=== PATIENT | female | born 1985 | race Caucasian/White ===

== ENCOUNTER 2017-11-11 19:12 | Inpatient (IN) | payer MEDICAID ==
[~2017-11-11] VITALS: Ht 172.7 cm; Wt 99.0 kg
[~2017-11-11 19:12] MED LIST: IBUP-1223 PO; OXYC-302 PO
[2017-11-11] MEDS ORDERED: NEWBORN KIT ONE (19:15)
[2017-11-11] MEDS ORDERED: OXYTOCIN 30U/ 0.9% NaCL 500ML 500 ML ONE ×2 (19:15→19:58)
[2017-11-11] MEDS ORDERED: LACTATED RINGERS 1,000 ML IV SCH (19:33)
[2017-11-11] MEDS ORDERED: OXYTOCIN 30U/ 0.9% NaCL 500ML 500 ML IV ONE (19:33)
[2017-11-11] MEDS ORDERED: D5%-LACTATED RINGERS 1,000 ML IV SCH (19:33)
[2017-11-11] MEDS ORDERED: IBUPROFEN 600 MG TABLET ONE (19:37)
[2017-11-11] MEDS: OXYTOCIN 30U/ 0.9% NaCL 500ML 500 ML IV SCH ×5 (19:41→22:33)
[2017-11-11] MEDS: IBUPROFEN 600 MG TABLET PO PRN (19:51)
[2017-11-11 19:53] VITALS: BP 132/73
[2017-11-11] MEDS ORDERED: BISACODYL 10 MG SUPP PR PRN (20:00)
[2017-11-11] MEDS ORDERED: ONDANSETRON 2MG/ML, 2ML IV PRN (20:00)
[2017-11-11] MEDS ORDERED: HYDROcodone/APAP 5/325 TABLET PO PRN (20:00)
[2017-11-11] MEDS ORDERED: ONDANSETRON 2MG/ML, 2ML IVPush PRN (20:00)
[2017-11-11] MEDS ORDERED: SODIUM CITRATE/CITRIC ACID 30 ML UDC PO PRN (20:00)
[2017-11-11] MEDS ORDERED: CALCIUM CARBONATE 500 MG TAB.CHEW PO PRN ×2 (20:00)
[2017-11-11] MEDS ORDERED: MISOPROSTOL 200 MCG TABLET PR PRN (20:00)
[2017-11-11] MEDS ORDERED: ACETAMINOPHEN 325 MG TABLET PO PRN ×2 (20:00)
[2017-11-11 20:02] LABS: BASOPHILS # (AUTO) 0.02 x10^3/uL (0-0.1); BASOPHILS % (AUTO) 0 % (0-1); EOSINOPHILS # (AUTO) 0.05 x10^3/uL (0-0.4); EOSINOPHILS % (AUTO) 0 % (1-7); LYMPHOCYTES # (AUTO) 0.96 x10^3/uL (1-3.4); LYMPHOCYTES % (AUTO) 8 % (22-44); MD NO; MEAN CORPUSCULAR HGB CONC 34.4 g/dL (32.4-35.8); MEAN CORPUSCULAR VOLUME 92.8 fL (80-100); MEAN PLATELET VOLUME 8.5 fL (7.4-10.4); MONOCYTES # (AUTO) 0.49 x10^3/uL (0.2-0.8); MONOCYTES % (AUTO) 4 % (2-9); NEUTROPHILS % (AUTO) 88 % (42-75); PLATELET COUNT 215 x10^3/uL (130-400); RED BLOOD COUNT 4.06 x10^6/uL (3.82-5.3)
[2017-11-11 21:25] VITALS: BP 105/66
[2017-11-12 00:15] VITALS: BP 112/69
[2017-11-12] MEDS: HYDROcodone/APAP 5/325 TABLET PO PRN ×3 (00:18→19:28)
[2017-11-12] MEDS: DOCUSATE 100 MG CAPSULE PO PRN ×2 (00:18→07:44)
[2017-11-12] MEDS: IBUPROFEN 600 MG TABLET PO PRN ×3 (04:07→19:28)
[2017-11-12 04:17] VITALS: BP 105/65
[2017-11-12] MEDS: LEVOTHYROXINE 150 MCG TABLET PO SCH ×2 (05:52→05:53)
[2017-11-12 07:28] VITALS: BP 89/46
[2017-11-12] MEDS ORDERED: PRENATAL VIT/IRON/FA 1 EACH TABLET PO SCH (09:00)
[2017-11-12] MEDS ORDERED: HYDR-3240 PO (09:06)
[2017-11-12] MEDS ORDERED: IBUP-1222 PO (09:06)
[2017-11-12] MEDS ORDERED: DOCU-131 PO (09:06)
[2017-11-12 12:18] VITALS: BP 110/77
[2017-11-12 15:38] VITALS: BP 102/68
[2017-11-12] MEDS: OXYTOCIN 30U/ 0.9% NaCL 500ML 500 ML IV SCH (15:41)
== END 2017-11-12 20:20 | disposition home or self-care (01) | DRG 775 ==
LOC: LDIP 19:12 → 2NW 21:15
PROVIDERS: ADMIT Obstetrics & Gynecology; ATTEND Obstetrics & Gynecology
PROC: 10E0XZZ Delivery of Products of Conception, External Approach (ICD-10-PCS; principal; 2017-11-11)
DX: O62.3 Precipitate labor (principal); O69.81X0 Labor and delivery complicated by cord around neck, without compression, not applicable or unspecified; Z37.0 Single live birth; O99.284 Endocrine, nutritional and metabolic diseases complicating childbirth; E03.9 Hypothyroidism, unspecified; G43.909 Migraine, unspecified, not intractable, without status migrainosus; Z3A.38 38 weeks gestation of pregnancy; Z80.41 Family history of malignant neoplasm of ovary; Z80.8 Family history of malignant neoplasm of other organs or systems; Z82.3 Family history of stroke; Z82.49 Family history of ischemic heart disease and other diseases of the circulatory system; Z83.3 Family history of diabetes mellitus; Z87.891 Personal history of nicotine dependence; Z90.49 Acquired absence of other specified parts of digestive tract
CPT/HCPCS: 36415; 85025; 86850; 86900; J2590; J7120

== ENCOUNTER → 2018-07-14 | Outpatient (CLI) | payer MEDICAID ==
[~2018-07-14] MED LIST changes: +DOCU-131 PO; +HYDR-3240 PO; +IBUP-1222 PO
== END | disposition home or self-care (01) ==
LOC: CFH 12:33
PROVIDERS: ATTEND Nurse Practitioner
DX: N64.4 Mastodynia (principal); N61.1 Abscess of the breast and nipple; N63.20 Unspecified lump in the left breast, unspecified quadrant

== ENCOUNTER 2020-05-22 09:05 | Inpatient (IN) | payer MEDICAID ==
[~2020-05-22] VITALS: Ht 172.7 cm; Wt 96.8 kg
[~2020-05-22 09:05] MED LIST changes: +HYDR-1067 PO; -HYDR-3240 PO; -OXYC-302 PO; +OXYC1TAB14 PO
[2020-05-22] MEDS ORDERED: MISOPROSTOL 200 MCG TABLET ONE (10:28)
[2020-05-22] MEDS ORDERED: NEWBORN KIT ONE (10:28)
[2020-05-22] MEDS ORDERED: OXYTOCIN 30U/ 0.9% NaCL 500ML 500 ML ONE (10:28)
[2020-05-22] MEDS ORDERED: LIDOCAINE 1%, 20ML ONE (10:28)
[2020-05-22] MEDS ORDERED: PLEASE ENTER HEIGHT AND WEIGHT MC SCH (10:30)
[2020-05-22] MEDS ORDERED: OXYTOCIN 30U/ 0.9% NaCL 500ML 500 ML IV ONE (10:30)
[2020-05-22] MEDS ORDERED: ONDANSETRON 2MG/ML, 2ML IVPush PRN (10:30)
[2020-05-22] MEDS ORDERED: TERBUTALINE 1 MG/ML, 1ML IVPush PRN (10:30)
[2020-05-22] MEDS ORDERED: FENTANYL PF 100 MCG/2ML IVPush PRN (10:30)
[2020-05-22] MEDS ORDERED: PENICILLIN GK 5,000,000 UNITS in DEXTROSE 5% 100 ML IVPB ONE (10:30)
[2020-05-22] MEDS ORDERED: FENTANYL PF 100 MCG/2ML IV PRN (10:30)
[2020-05-22] MEDS ORDERED: TERBUTALINE 1 MG/ML, 1ML SQ PRN (10:30)
[2020-05-22] MEDS ORDERED: OXYTOCIN 30U/ 0.9% NaCL 500ML 500 ML IV PRN (10:30)
[2020-05-22 10:50] LABS: AMPHETAMINE SCREEN, URINE Negative (Negative); BARBITURATE SCREEN, URINE Negative (Negative); BENZODIAZEPINE SCREEN, URINE Negative (Negative); CANNABINOID SCREEN, URINE Positive (Negative); COCAINE SCREEN, URINE Negative (Negative); METHADONE SCREEN, URINE Negative (Negative); OPIATE SCREEN, URINE Negative (Negative)
[2020-05-22] MEDS: LACTATED RINGERS 1,000 ML IV SCH ×2 (10:53→18:30)
[2020-05-22 10:55] VITALS: BP 117/63
[2020-05-22 11:11] LABS: BASOPHILS % (AUTO) 1 % (0-1); EOSINOPHILS % (AUTO) 1 % (1-7); LYMPHOCYTES % (AUTO) 16 % (22-44); MEAN CORPUSCULAR HEMOGLOBIN 31.8 pg (27.0-34.8); MEAN CORPUSCULAR HGB CONC 34.4 g/dL (32.4-35.8); MEAN PLATELET VOLUME 8.8 fL (7.4-10.4); MONOCYTES % (AUTO) 7 % (2-9); NEUTROPHILS % (AUTO) 76 % (42-75); PLATELET COUNT 201 x10^3/uL (130-400); RED BLOOD COUNT 4.17 x10^6/uL (3.82-5.3); RED CELL DISTRIBUTION WIDTH 13.4 % (9.6-15.2)
[2020-05-22 11:12] LABS: MD NO
[2020-05-22] MEDS ORDERED: OXYTOCIN 30U/ 0.9% NaCL 500ML 500 ML IV SCH (15:00)
[2020-05-22] MEDS ORDERED: ACETAMINOPHEN 325 MG TABLET PO PRN (15:00)
[2020-05-22] MEDS ORDERED: MISOPROSTOL 200 MCG TABLET PR PRN (15:00)
[2020-05-22] MEDS ORDERED: DOCUSATE 100 MG CAPSULE PO PRN (15:00)
[2020-05-22] MEDS ORDERED: SIMETHICONE 80 MG CHEW TAB PO PRN (15:00)
[2020-05-22] MEDS ORDERED: OXYcodone/APAP 5/325MG TABLET PO PRN (15:00)
[2020-05-22] MEDS: PENICILLIN GK 2,500,000 UNITS in DEXTROSE 5% 100 ML IVPB SCH ×3 (15:00→23:00)
[2020-05-22] MEDS ORDERED: OXYcodone IR 5MG TABLET PO PRN (15:00)
[2020-05-22] MEDS ORDERED: ONDANSETRON 2MG/ML, 2ML IV PRN (15:00)
[2020-05-22] MEDS ORDERED: METOCLOPRAMIDE 5 MG/ML, 2ML IV ONE (17:00)
[2020-05-22] MEDS ORDERED: AZITHROMYCIN 500 MG in SODIUM CHLORIDE 0.9% 250 ML IV ONE (17:00)
[2020-05-22] MEDS ORDERED: SODIUM CITRATE/CITRIC ACID 30 ML UDC PO ONE (17:00)
[2020-05-22] MEDS ORDERED: LACTATED RINGERS 1,000 ML IVBOLUS ONE (17:00)
[2020-05-22 17:30] VITALS: BP 127/76
[2020-05-22] MEDS: IBUPROFEN 600 MG TABLET PO PRN (17:59)
[2020-05-22 20:00] VITALS: BP 116/68
[2020-05-23] VITALS: BP 123/83
[2020-05-23 04:00] VITALS: BP 122/81
[2020-05-23 05:37] LABS: BASOPHILS % (AUTO) 0 % (0-1); EOSINOPHILS % (AUTO) 1 % (1-7); LYMPHOCYTES % (AUTO) 16 % (22-44); MEAN CORPUSCULAR HEMOGLOBIN 31.8 pg (27.0-34.8); MEAN CORPUSCULAR HGB CONC 34.4 g/dL (32.4-35.8); MEAN PLATELET VOLUME 8.1 fL (7.4-10.4); MONOCYTES % (AUTO) 7 % (2-9); NEUTROPHILS % (AUTO) 76 % (42-75); PLATELET COUNT 187 x10^3/uL (130-400); RED BLOOD COUNT 3.73 x10^6/uL (3.82-5.3); RED CELL DISTRIBUTION WIDTH 13.4 % (9.6-15.2)
[2020-05-23 05:43] LABS: MD NO
[2020-05-23 08:15] VITALS: BP 121/77
[2020-05-23] MEDS: PRENATAL VIT/IRON/FA 1 EACH TABLET PO SCH (08:19)
[2020-05-23] MEDS: IBUPROFEN 600 MG TABLET PO PRN (08:19)
[2020-05-23] MEDS: LEVOTHYROXINE 137 MCG TABLET PO SCH (09:34)
[2020-05-23 12:33] VITALS: BP 139/80
[2020-05-23 16:10] VITALS: BP 125/79
[2020-05-23 20:00] VITALS: BP 126/74
[2020-05-24] MEDS: LEVOTHYROXINE 137 MCG TABLET PO SCH (06:05)
[2020-05-24] MEDS ORDERED: IBUP-1222 PO (07:47)
[2020-05-24] MEDS: PRENATAL VIT/IRON/FA 1 EACH TABLET PO SCH (09:00)
== END 2020-05-24 12:19 | disposition home or self-care (01) | DRG 807 ==
LOC: LDOP 09:05 → LDIP 10:05 → 2NW 17:03
PROVIDERS: ADMIT Obstetrics & Gynecology; ATTEND Obstetrics & Gynecology
PROC: 10E0XZZ Delivery of Products of Conception, External Approach (ICD-10-PCS; principal; 2020-05-22)
DX: O99.824 Streptococcus B carrier state complicating childbirth (principal); Z37.0 Single live birth; Z3A.38 38 weeks gestation of pregnancy; Z20.822 Contact with and (suspected) exposure to COVID-19
CPT/HCPCS: 36415; 80307; 85025; 86592; 86850; 86900; 87635; 87806; G0378; J2540; G0475; J2590; J7120